=== PATIENT | male | born 1955 | race Caucasian/White ===

== ENCOUNTER → 2017-05-10 | Outpatient (CLI) | payer MEDICARE ==
[~2017-05-10] MED LIST: ADAL40KI2; CHOLESTEROL MED PO; CIP500 PO; DIC75 PO; IOPAMIDOL 76% 75 ML INFUS BTL 75 ML ONE; LOR5/325 PO; MEL7.5 PO; NS 0.9% 20 ML SDV 60 ML ONE; OMEP-218 PO; PER PO; TADA5TAB7 PO; TAM4; TENTRAL; [UNRECOGNIZED DRUG - CODE] PO
--- NOTE | 2017-05-10 20:52 | RADIOLOGY IMAGING REPORT ---
[place] [facility] NAME: Xavier Lockwood : 1955 MR: [id number] V: [id number] EXAM DATE: ORDERING PHYSICIAN: ROSEANN SHAFFER TECHNOLOGIST: Location: [facility] [place] Patient: Xavier Lockwood : 1955 Visit/Account:[id number] Date of Sevice: 05/10/2017 EXAMINATION: CT neck with IV contrast HISTORY: Neck swelling TECHNIQUE: CT was obtained through the neck following IV contrast administration. Sagittal and co jasen reformatted images were generated. 75 mL of IV Isovue-370 injected. One of the following dose optimization techniques was utilized in the performance of this exam: autom ated exposure control; adjustment of the mA and/or kV according to patient size; or use of iterative reconstruction technique. Specific details can be referenced in the facility's radiology CT exam ope rational policy. COMPARISON: None. FINDINGS: BB marker localizes site of concern in the right mid to upper neck. No neck mass seen in this region. The right submandibular gland is in this region and may explain the palpable nodule. Parotid/submandibular and thyroid glands: Atrophic or absent left submandibular gland. Normal right s ubmandibular gland, normal parotid glands. Normal thyroid. Pharyngeal and retropharyngeal soft tissues: Normal. Oral cavity and meter repairer helper space soft tissues: Normal. Laryngeal soft tissues: Normal. Lymph nodes: Negative. Vessels: Normal for age. Visualized orbits / brain: Negative. Upper chest: Normal. Bones/sinuses/mastoid air cells: No acute osseous abnormality. Multilevel degenerative cervical pamela inal narrowing. IMPRESSION: 1. No neck mass or adenopathy in the area of interest. The BB marker localizing the site of concern i s positioned near the right submandibular gland which appears normal. 2. Atrophic or absent left submandibular gland. 3. Otherwise normal neck CT. Report Dictated By: Gumaro Rose MD at 05/10/2017 8:40 PM Report E-Signed By: Gumaro Rose MD at 05/10/2017 8:47 PM WSN:[id number]
== END ==
LOC: CT 16:19
PROVIDERS: ATTEND Nurse Practitioner Family
DX: R59.0 Localized enlarged lymph nodes (principal)
CPT/HCPCS: J7050; Q9967; 70491

== ENCOUNTER 2017-06-08 01:26 | Day surgery (SDC) | payer MEDICARE ==
[~2017-06-08] VITALS: Ht 166.4 cm; Wt 85.3 kg
[~2017-06-08 01:26] MED LIST changes: +GENTAMICIN(*) 80 MG/2 ML VIAL 160 MG in NS(*) 0.9% 100 ML BAG 100 ML IVPB ONE; +IBUP200C71 PO; -IOPAMIDOL 76% 75 ML INFUS BTL 75 ML ONE; +LIDOCAINE/SOD BICARB 8.4% SYR ID ONE; +MIDAZOLAM 2 MG/2 ML VIAL IVP PRN; +NORMOSOL R SOLN(*) 1000 ML BAG 1,000 ML IV PRN; -NS 0.9% 20 ML SDV 60 ML ONE; +cefTRIAXone(*) 1 GM VIAL 1 GM in NS(*) 0.9% 100 ML ADDVANT BAG 100 ML IVPB ONE
[2017-06-08] MEDS ORDERED: PROPOFOL EMUL(*) 10MG/ML 20 ML 20 ML ONE (09:52)
[2017-06-08] MEDS ORDERED: DEXAMETHASONE SOD 4 MG/ML VIAL ONE (09:52)
[2017-06-08] MEDS ORDERED: LIDOCAINE MPF 1% 5 ML VIAL ONE (09:52)
[2017-06-08] MEDS ORDERED: METOCLOPRAMIDE 10 MG/2 ML SDV ONE (09:52)
[2017-06-08] MEDS ORDERED: ONDANSETRON 4 MG/2 ML VIAL ONE (09:52)
[2017-06-08] MEDS ORDERED: FAMOTIDINE 20 MG TAB PO ONE (11:00)
[2017-06-08 11:20] VITALS: BP 150/99
[2017-06-08] MEDS ORDERED: LIDOCAINE/SOD BICARB 8.4% SYR ID ONE (11:30)
[2017-06-08] MEDS ORDERED: GENTAMICIN(*) 80 MG/2 ML VIAL 160 MG in NS(*) 0.9% 100 ML BAG 100 ML IVPB ONE (11:30)
[2017-06-08] MEDS ORDERED: NORMOSOL R SOLN(*) 1000 ML BAG 1,000 ML IV PRN (11:30)
[2017-06-08] MEDS ORDERED: cefTRIAXone(*) 2 GM VIAL 2 GM in NS(*) 0.9% 100 ML ADDVANT BAG 100 ML IVPB ONE (11:30)
[2017-06-08] MEDS ORDERED: MIDAZOLAM 2 MG/2 ML VIAL IVP PRN (11:30)
[2017-06-08] MEDS ORDERED: fentaNYL CITR 100 MCG/2 ML AMP ONE (11:39)
[2017-06-08] MEDS ORDERED: LEVO-85 PO (14:37)
[2017-06-08] MEDS ORDERED: HYDR-389 PO (14:39)
[2017-06-08] MEDS ORDERED: IBUP800T37 PO (14:40)
[2017-06-08] MEDS ORDERED: FAMO20TA28 PO (14:43)
[2017-06-08 14:59] VITALS: BP 142/70
[2017-06-08 15:04] VITALS: BP 142/96
--- NOTE | 2017-06-08 15:33 | RADIOLOGY IMAGING REPORT ---
FACILITY: [facility] PATIENT NAME: Xavier Lockwood : 1955 MR: [id number] V: [id number] EXAM DATE: ORDERING PHYSICIAN: BRENDON SMITH TECHNOLOGIST: Location: [facility] Patient: Xavier Lockwood : 1955 Visit/Account:[id number] Date of Sevice: 06/08/2017 Exam type: PROSTATE BIOPSY History: Prostate biopsy Comparison: None. Findings: Prostate biopsy was performed by Dr. Smith. Sonographic assistance was provided. Please see Dr. Antnoio mcnally's report for complete details IMPRESSION: 1. As above Report Dictated By: Caroline Vick MD at 06/08/2017 3:28 PM Report E-Signed By: Caroline Vick MD at 06/08/2017 3:29 PM WSN:[email or web address]
--- NOTE | 2017-06-08 19:55 | OPERATIVE REPORT 1 ---
EVENT DATE: June 08, 2017 SURGEON: Mauro Vargas MD ANESTHESIOLOGIST: Damion Sellers MD ANESTHESIA: General anesthetic. PREOPERATIVE DIAGNOSES 1. Elevated prostate-specific antigen. 2. 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 POSTOPERATIVE DIAGNOSES 1. Elevated prostate-specific antigen. 2. 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 3. Calculus prostatitis. PROCEDURES PERFORMED 1. Prostate ultrasound. 2. Transrectal biopsies, #12. 3. Cystourethroscopy and evacuation of blood clots. DESCRIPTION OF PROCEDURE Under general anesthetic, the patient was prepped and draped in the extended lithotomy position. The 21 panendoscope was admitted through the urethra into the bladder. The urethra was normal. The prostate showed trilobar hyperplasia with obstruction. The bladder showed 4+ trabeculation. The trigone and ureteral orifices were normal. Approximately five to six blood clots were evacuated from the bladder. A prostate ultrasound was performed at the beginning of the procedure. Transrectal ultrasound revealed approximately a 60 g prostate. The patient had calculus prostatitis bilaterally, more on the left than on the right in the transitional zone primarily. Some mottling of the prostate tissue in the proximal mid zone area. Transrectal biopsies were obtained from the base, mid, and apical areas of the prostate bilaterally for a total of 12 prostate sample biopsies. The prostate ultrasound probe was removed. Digital rectal examination revealed minimal blood in the rectal ampulla. After cystoscopy and evacuation of the blood clots, digital rectal examination again revealed minimal blood in the rectal ampulla. The patient tolerated the procedure satisfactorily and returned to the recovery room in satisfactory condition. This is a 61-year-old Portuguese male referred by Patti Aldrich with the complaint of elevated PSA of 8.2 in 2018. The patient had a PSA of 1.9 in 2011. The patient has been on testosterone therapy for approximately 30 years. The patient's father of prostate cancer at the age of 68. The patient had nocturia times three to four, which is normal. The patient has a history of urine cystoprostatitis approximately three to four years ago. The patient has had no genitourinary tract procedures. Options were discussed with the patient pre-evaluation, and he was agreeable to further evaluation and therapy. See operative note for details. The patient had an area of firmness in the right apical area of the prostate on digital rectal examination. The patient has subsequently had the procedures. See operative note for details. The patient will be ready for discharge home when alert and functional. He is to force fluids, 2 L per day. Activities are as tolerated. He is to continue his usual medications. A copy of instructions were given to the patient. The patient will be discharged on Cipro, Pepcid, Motrin, and [place] therapy in addition to his usual medications. PLAN Follow up in the office this coming Monday, the May. LEAH
[2017-06-21] MEDS ORDERED: CALC-521 PO (13:39)
[2017-06-21] MEDS ORDERED: MAGN200T6 PO (13:39)
== END 2017-06-08 14:58 | disposition home or self-care (01) ==
LOC: OR 01:26
DX: R97.20 Elevated prostate specific antigen [PSA] (principal); N40.0 Benign prostatic hyperplasia without lower urinary tract symptoms
CPT/HCPCS: 52001; 55700; 76942; 88305; 88344; A9270; J0696; J1100; J1580; J2001; J2405; J2704; J2765; J3010; J7050

== ENCOUNTER → 2017-06-16 | Outpatient (CLI) | payer MEDICARE ==
[~2017-06-16] MED LIST changes: +FAMO20TA28 PO; -GENTAMICIN(*) 80 MG/2 ML VIAL 160 MG in NS(*) 0.9% 100 ML BAG 100 ML IVPB ONE; +HYDR-389 PO; +IBUP800T37 PO; +IOPAMIDOL 76% 75 ML INFUS BTL 75 ML ONE; +LEVO-85 PO; -LIDOCAINE/SOD BICARB 8.4% SYR ID ONE; -MIDAZOLAM 2 MG/2 ML VIAL IVP PRN; -NORMOSOL R SOLN(*) 1000 ML BAG 1,000 ML IV PRN; -cefTRIAXone(*) 1 GM VIAL 1 GM in NS(*) 0.9% 100 ML ADDVANT BAG 100 ML IVPB ONE
--- NOTE | 2017-06-16 09:29 | RADIOLOGY IMAGING REPORT ---
[place] [facility] [place] NAME: Xavier Lockwood : 1955 MR: [id number] V: [id number] EXAM DATE: ORDERING PHYSICIAN: BRENDON SMITH TECHNOLOGIST: Location: [facility] Patient: Xavier Lockwood : 1955 Visit/Account:[id number] Date of Sevice: 06/16/2017 ABDOMEN/PELVIS W/WO CONTRAST HISTORY: Prostate cancer TECHNIQUE: Axial images acquired through the abdomen/pelvis both with and without IV contrast.. Tash nal and sagittal reformatting also performed. Dose Lowering Technique One of the following dose optimization techniques was utilized in the performance of this exam: Autom ated exposure control; adjustment of the mA and/or kV according to the patient's size; or use of an i terative reconstruction technique. Specific details can be referenced in the facility's radiology C T exam operational policy. CONTRAST: 75 mL Isovue-370 COMPARISON: February 17, 2012 FINDINGS: Visualized lung bases: Negative. Hepatobiliary: Negative. Spleen: Negative. Adrenals: Negative. Pancreas: Negative. Kidneys ureters and bladder: There are small nonobstructing calculi in both renal collecting systems largest on the right measures approximately 2 mm. The largest on the left measures approximately 4 m m. No evidence of hydronephrosis or hydroureter . There are tiny subcentimeter hypodensities in beba th kidneys that are too small to characterize. There is mild thickening of the inferior bladder wall Genitalia: Prostate gland appears enlarged, heterogeneous and impinges upon the floor the bladder GI: There is diverticulosis left-sided colon although no CT evidence of acute diverticulitis Vessels/spaces/nodes: Negative. Bones/soft tissues: No aggressive appearing bone lesions are seen Additional findings: None pertinent. IMPRESSION: Prostate gland is enlarged inhomogeneous impinging upon the floor the bladder The bladder floor appears mildly thickened Nonobstructing calculi in both renal collecting systems Diverticulosis left-sided colon although no CT evidence of acute diverticulitis Report Dictated By: Caroline Vick MD at 06/16/2017 9:11 AM Report E-Signed By: Caroline Vick MD at 06/16/2017 9:25 AM WSN:[email or web address]
--- NOTE | 2017-06-16 13:54 | RADIOLOGY IMAGING REPORT ---
FACILITY: [facility] [place] PATIENT NAME: Xavier Lockwood : 1955 MR: [id number] V: [id number] EXAM DATE: ORDERING PHYSICIAN: BRENDON SMITH TECHNOLOGIST: Location: [facility] [place] Patient: Xavier Lockwood : 1955 Visit/Account:[id number] Date of Sevice: 06/16/2017 WHOLE BODY BONE SCAN HISTORY: Prostate cancer TECHNIQUE: 26.5 mCi technetium 99m HDP was injected intravenously. Delayed anterior and posterior wh ole body gamma camera images were obtained. Additional gamma camera images: Right left lateral skull COMPARISON: None. FINDINGS: Bone radiotracer activity: There is degenerative type uptake seen at the shoulders wrists and knees and feet. Extraosseous radiotracer activity: Unremarkable. Renal and urinary collecting system activity: Unremarkable. IMPRESSION: Multifocal areas of degenerative type uptake seen although no scintigraphic evidence of osseous metas tases Report Dictated By: Caroline Vick MD at 06/16/2017 1:32 PM Report E-Signed By: Caroline Vick MD at 06/16/2017 1:51 PM WSN:[email or web address]
== END ==
LOC: CT 03:34
DX: M19.90 Unspecified osteoarthritis, unspecified site (principal); N40.0 Benign prostatic hyperplasia without lower urinary tract symptoms; N32.89 Other specified disorders of bladder; N20.0 Calculus of kidney
CPT/HCPCS: 36415; 74178; 78306; 82565; A9503; Q9967

== ENCOUNTER 2017-08-22 10:14 | Outpatient (RCR) | payer MEDICARE ==
--- NOTE | 2017-06-22 17:46 | ONCOLOGY CONSULTATION ---
EVENT DATE: June 20, 2017 PRIMARY SITE AND HISTOPATHOLOGY Adenocarcinoma of the prostate, status post 12 core needle biopsy with ultrasound guidance on June 08, 2017, Sean 3+4=7. Tumor is occupying 80 % of left lateral apex biopsy, 10% of the left apex biopsy, and 20% of the left lateral middle prostate gland biopsy (three positive biopsies of 12 cores). PSA elevation of 8.2 ng/mL prior to biopsy. STAGE T1c clinical N0 M0. HISTORY This is a pleasant 61 year-old gentleman who is referred to me by Dr. Vargas to discuss oncologic options relating to a recently diagnosed prostate carcinoma. Patient has discussed surgical options recently with Dr. Vargas. He is interested in discussion of nonoperative therapeutic options. The patient has a strong family history of prostate cancer. He states his father was diagnosed with prostate cancer at age 68. He three months shortly after diagnosis. His father was living in [place] at the time. The patient states his PSA approximately five years ago was 1.9 ng/mL from his memory. Patient was recently found on lab work by DAVON Menchaca, to have a significant increase in his PSA which was elevated at 8.2 ng/mL on a collection date of May 02, 2017. He was referred back to Dr. Vargas for urologic evaluation and biopsy. Patient had a prior history of prostatitis back in 2011. He recalls having a catheter and also being on Cipro for two to four weeks. He states that he did not have any annua PSAs in the last several years due to issues with insurance. He was working previously at the [employer] on the [employer] team, but became disabled after a rotator cuff injury. After the evaluation by Dr. Vargas, he was advised that he should undergo an ultrasound-guided biopsy of the prostate and further assessment. The patient's biopsy was obtained on June 08, 2017. This was positive for three of 12 core biopsies. All three core biopsies were from the left lobe of the prostate , occupying 10% to 80% of the core needle volume. Patient has experienced some light hematuria since the biopsy, but this is slowly clearing. He denies any dysuria. Patient denies any persistent bone pain. No recent weight loss. He does have baseline urinary frequency, which he relates to significant fluid intake. He likes to drink tea. He states he voids q.2 hours during the day and six times at night. He does recall that he was on Flomax in the past, but I believe he discontinued this due to cost concerns. Patient is highly anxious regarding the possibility of prostate cancer spread or metastasis and would like to discuss therapeutic options with me today. He was quickly worked into the schedule so we could review the records which were provided by Dr. Vargas. I also reviewed his staging evaluation, which was requested by Dr. Vargas appropriately. Those studies included a bone scan on June 16, 2017 which was normal. He a CT of the abdomen and pelvis on the same date. He does have nonobstructing small calculi in both collecting systems with the calculi listed as 2 mm and 44 mm. No hydronephrosis. There is some mild thickening of the inferior bladder wall. On my review of the films there is significant prostate enlargement and indentation into the floor of the bladder, consistent with median lobe enlargement. There is slightly irregular contour to the prostate with inhomogeneous appearance. This may be related to his recent biopsy. Lateral margins of the prostate are indistinct as the gland abuts the muscles at that location. I did not see any evidence of pelvic or periaortic lymphadenopathy. Liver was unremarkable. He does have left-sided diverticulosis. PAST MEDICAL HISTORY 1. Disability due to rotator cuff injury. 2. Prior history of prostatitis. 3. Prior history of intermittent problems with ulcerative colitis, last episode four months ago. He may have one episode every year of every other year. 4. Prostate carcinoma with history as listed above. PAST SURGICAL HISTORY 1. Left rotator cuff repair. 2. Prior foot surgery for fasciitis. 3. Prior left shoulder surgery for tendon tear. REVIEW OF SYSTEMS Fourteen point review of systems notable for occasional shortness of breath with exertion, but nothing new. Moderately active. He does have joint pain and stiffness in the hips bilaterally. No cardiovascular complaints. No neurologic complaints. He does state at times he has difficulty concentrating. He tends to be anxious and thinks quickly. Does have nocturia. AUA score was 20. He has a history of GERD, but presently controlled with medications. No hematologic or lymphatic issues. MEDICATIONS 1. Ibuprofen 800 mg q.8 hours p.r.n. pain. 2. Levofloxacin 100 mg daily due to recent biopsy. 3. MVI. 4. Omeprazole. 5. Prilosec OTC 20 mg b.i.d. 6. Tums p.r.n. ALLERGIES No drug allergies. SOCIAL HISTORY Patient lives locally. He has been unable to work for the last five years, but is on disability at this time. He described the incident to me. Does have a son and a daughter. He is a sister who is a physician in [place]. He is . States he has two to three drinks per week. Nonsmoker. FAMILY HISTORY Notable for a father with prostate carcinoma at age 68. History listed in HPI. Maternal grandmother had pancreatic cancer at age 62. He believes his mother lived into her late 60s. PHYSICAL EXAMINATION GENERAL: A pleasant 61-year-old male of medium frame. VITAL SIGNS: Height 67 inches, weight 192. BP 127/89, pulse 83, respirations 16. Rates fatigue as a 6 on a scale of 1-10. LYMPH NODES: No peripheral lymphadenopathy. LUNGS: Clear to auscultation bilaterally. HEART: Sounds are regular with no audible murmur. ABDOMEN: Soft with no gross organomegaly, mass or tenderness. EXTREMITIES: Reveal no edema or cyanosis. He does have limitation on musculoskeletal extension of the shoulder to approximately 90 degrees. RECTAL: Prostate examination reveals a mildly enlarged gland. I could only palpate the inferior portion of the gland on today's exam. The prostate was nontender. NEUROLOGIC: Exam is intact. IMPRESSION This is a 61-year-old gentleman who recently was evaluated by primary care, Patti Aldrich, who appreciated a significant elevation in his PSA of 8.2, where previously the numbers were under 2 five years ago. He has a strong family history of aggressive prostate carcinoma. He appropriately underwent needle biopsies by Dr. Vargas and was found to have three positive core biopsies. Pertinent medical issues include remote history of prostatitis and BPH symptoms. He also is bothered intermittently by ulcerative colitis, but this is not active at this time. I believe the patient has an intermediate risk prostate cancer based on the features presented to me. I went through a prostate nomogram calculator from [facility] The features of his malignancy and PSA would indicate relative risk of extracapsular extension of 52%, seminal vesical involvement of 3%, and lymph node involvement of 3% in similar patients who have undergone surgery. His predicted progression-free survival from that nomogram was 86% at five years and 76% at 10 years. Patient is aware of his surgical options which have been well presented by Dr. Vargas. He and I went over radiation therapy options per his wishes, and I also discussed hormone therapy options today. He would not be a good candidate for watchful waiting in my opinion. The radiotherapy options would be an IMRT treatment program with progressive field reductions after 50 Gy to 72 Gy. Field would cover the prostate and seminal vesicals only with no extension to the lower pelvis to cover any lymph nodes, as none are visible at this time on the diagnostic CT scan which appeared to be of very good quality. The other option for the patient would be external beam radiotherapy to 50 Gy followed by Palladium-103 seed implant for boost. Both options are reasonable. I favor the external beam program in this particular patient since I think he would be at higher risk for obstructive uropathy if he underwent brachytherapy. I spoke with the patient regarding present standards of care which add ADT ( androgen deprivation therapy) to similar patients for a time period of six to 24 months. Patient is presently opposed to any thought of Lupron or Casodex at this time. He states he would like to do the radiotherapy course alone and knows that he has additional options if the tumor is not fully controlled within 12-18 months. I did tell the patient that generally the PSA would normalized within a period of about six to nine months based on the features presented to me. Treatments would be stopped immediately if he had any symptoms of colitis or recurrent prostatitis. At the end of our conversation and consultation today which took approximately 80 minutes, the patient stated that he would like to proceed with the radiotherapy program as soon as feasible. He wanted to undergo a targeting simulation of Monday of this week, and the radiotherapy program will tentatively start on July 03. I wish to thank Dr. Vargas for the excellent records which accompanied the patient today. The patient appeared to have good baseline information. He may require tamsulosin during the treatment program and I will reach out to our patient navigator to see if we can assist him in finding a lower cost pharmacy option or assistance for medications, which is a concern of the patient today. He does have Medicare A and B, but no supplement at this time, and our navigator will discuss those and/or discuss any concerns the patient may have by the time he returns for the radiotherapy program. I went through potential acute and late side effects and therapeutic management. Signed consent was obtained for treatment today and IMRT treatment approach will be taken to minimize adverse effects, and patient will be monitored closely. MTDD
[2017-06-27 13:58] VITALS: BP 118/92
[2017-06-27 14:11] LABS: PLATELET COUNT, AUTOMATED 157 K/uL (150-450)
[2017-08-21 10:47] VITALS: BP 139/85
[2017-08-21 11:00] LABS: PLATELET COUNT, AUTOMATED 142 K/uL (150-450)
[~2017-08-22 10:14] MED LIST changes: +CALC-521 PO; -IOPAMIDOL 76% 75 ML INFUS BTL 75 ML ONE; +MAGN200T6 PO; +PRED-1 PO
== END 2017-09-17 ==
LOC: RAON 10:14
PROVIDERS: ATTEND Radiology Radiation Oncology
DX: Z51.0 Encounter for antineoplastic radiation therapy (principal); C61 Malignant neoplasm of prostate; M25.552 Pain in left hip; M25.551 Pain in right hip; R35.1 Nocturia
CPT/HCPCS: 36415; 77280; 77290; 77300; 77301; 77336; 77338; 77385; 84153; 85025; G0463; 82040; 82247; 82310; 82374; 82435; 82565; 82947; 84075; 84132; 84155; 84295; 84450; 84460; 84520; 99203

== ENCOUNTER 2017-11-21 09:52 | Outpatient (RCR) | payer MEDICARE ==
[2017-08-21 10:47] VITALS: BP 139/85
[~2017-11-21 09:52] MED LIST changes: +IBUP-136 PO; -IBUP200C71 PO
== END 2017-11-29 15:45 | disposition home or self-care (01) ==
LOC: RAON 09:52
PROVIDERS: ATTEND Radiology Radiation Oncology
DX: Z51.0 Encounter for antineoplastic radiation therapy (principal); C61 Malignant neoplasm of prostate; M25.552 Pain in left hip; M25.551 Pain in right hip; R35.1 Nocturia
CPT/HCPCS: 36415; 84153; G0463; 99212

== ENCOUNTER 2018-05-22 14:52 | Outpatient (RCR) | payer MEDICARE ==
--- NOTE | 2018-01-23 13:40 | NUR ---
KRISHAN rec'd two phone calls from patient wondering if his balance at [facility] would apply to the financial assistance application agreement he had during his treatment. KRISHAN looked into this and learned that his FA had and he could not apply for financial assistance until he had a balance of more than $500. At this time the pt is agreeable to paying the bill.
[2018-02-23 10:04] VITALS: BP 135/86
[2018-02-23 10:10] LABS: PLATELET COUNT, AUTOMATED 153 K/uL (150-450)
--- NOTE | 2018-02-27 21:08 | ONCOLOGY FOLLOW UP NOTE ---
EVENT DATE: February 27, 2018 REASON FOR VISIT Oncology reassessment and review of recent PSA status post external beam radiotherapy for prostate carcinoma, [place] 7. ONCOLOGY HISTORY 1. Patient diagnosed with prostate carcinoma on ultrasound biopsy dated 06/08/2017, [place] 3 + 4 = 7 tumor. Tumor occupying 80% of the left lateral apex, 10% of the left apex, and 20% of the left lateral middle prostate gland. A total of three positive biopsies of 12 cores. Pretreatment PSA elevation 8.2 ng/mL prior to biopsy. 2. Patient treated with full-dose external beam radiation therapy, 7200 cGy, 42 fractions. Patient elected not to proceed with Lupron concurrently. INTERVAL HISTORY Patient clinically is doing well. Denies any bone pain. No dysuria. He does have a slightly slowed stream and typically voids q.90 minutes both during the day and at night. He drinks two large cups of coffee in the morning, occasionally some tea in the afternoon. He generally will drink water when he voids at night. AUA score of 22. PSA has fallen to 0.86 ng/mL with a progressive decline since the end of treatment. Prior PSA in November was 2.29. PAST MEDICAL HISTORY 1. Benign prostatic hypertrophy. 2. Prostate carcinoma diagnosed 05/2017. 3. DJD. 4. History of reflux. 5. History of ulcerative colitis. 6. Plantar fascitis. 7. Hypercholesterolemia. SURGICAL HISTORY 1. Prostate biopsies 05/2017. 2. Tendon repair of a shoulder injury in 2012. 3. Right foot surgery for plantar fasciitis 2006. MEDICATIONS 1. Ibuprofen p.r.n. 2. Multivitamin. 3. Prilosec 10 mg a day. 4. Magnesium 200 mg a day. ALLERGIES None. FAMILY HISTORY Father at age 68 with some form of malignancy. SOCIAL HISTORY He does drink an occasional beer. , two children. COMPREHENSIVE REVIEW OF SYSTEMS Completely negative with the exception of the urinary frequency q.90 minutes. Bowels are fairly regular at this time with no bleeding. LABORATORY Recent CBC and metabolic panel were normal. PSA down to 0.8 ng/mL, an excellent response. PHYSICAL EXAMINATION GENERAL: Pleasant, 62-year-old male. VITAL SIGNS: BP 135/82, pulse 65, respirations 16, O2 sat 92% on room air. Weight 193. LUNGS: Clear bilaterally. CARDIOVASCULAR: Heart sounds regular. LYMPHATICS: No lymphadenopathy. ABDOMEN: Soft. No gross organomegaly. RECTAL: The prostate bed is flat with no nodularity or tenderness. EXTREMITIES: No edema or cyanosis. IMPRESSION AND PLAN 1. Prostate carcinoma has responded well to treatment with normalization of the PSA. 2. Symptoms of benign prostatic hypertrophy. There is also smooth muscle in the bladder which sometimes causes restricted flow. I advised the patient to try tamsulosin 0.4 mg b.i.d. for 30 days, five refills, if symptoms persist. Alter fluid intake and caffeine products. Alternative therapies would include Ditropan and/or urologic assessment. 3. Patient will return to clinic in three months or be seen sooner on an as- needed basis. 4. He will continue to see Patti Aldrich for primary medical needs. LEAH
[2018-05-18 14:10] VITALS: BP 116/76
[2018-05-18 14:18] LABS: PLATELET COUNT, AUTOMATED 147 K/uL (150-450)
[~2018-05-22 14:52] MED LIST changes: +LOSA-51 PO; +TAMS0.4C70 PO
[2018-05-22] MEDS ORDERED: TAMS0.4C25 PO (15:18)
--- NOTE | 2018-05-22 22:32 | ONCOLOGY FOLLOW UP NOTE ---
EVENT DATE: May 22, 2018 REASON FOR VISIT Prostate cancer surveillance, known history of Sean 7 adenocarcinoma of the prostate. ONCOLOGY HISTORY 1. Cancer was diagnosed 06/08/17, [place] 3 + 4 = 7. Tumor occupied three of 12 core biopsies up to 80% volume, predominantly on the left side. Pretreatment PSA of 8.2 ng/mL. 2. Status post external beam radiotherapy to 7200 cGy in 42 fractions. Patient declined Lupron. INTERVAL HISTORY Patient clinically is doing well. No significant voiding issues. Baseline nocturia x3-4. Good flow. Denies any new bone pain. He does have diffuse arthritic pain and takes ibuprofen 600 mg t.i.d. Bowels are fairly stable. He does have a history of ulcerative colitis and occasionally has flare-ups with gas, abdominal cramping. He requested a prescription for prednisone today. Elected to give him the medication; however, instructed him to make sure he is given a colonoscopy this next year with the well reactivator operator. He states he did see one 6 or 7 years ago in [place]. PSA is reasonably stable, 1.2 ng/mL. Prior values were 0.86. PAST MEDICAL HISTORY 1. Prostate carcinoma. 2. BPH. 3. Ulcerative colitis. 4. History of reflux. 5. DJD. 6. Plantar fasciitis. SURGICAL HISTORY 1. Prostate biopsy 05/2017. 2. Repair of a shoulder in 2012. 3. Right foot surgery 2006. MEDICATIONS 1. Ibuprofen. 2. Prilosec. ALLERGIES None. FAMILY HISTORY Father had some type of malignancy at age 68. SOCIAL HISTORY Patient drinks occasional beer. , two children. COMPREHENSIVE REVIEW OF SYSTEMS Notable for the diffuse arthritic pain and occasional cramping in the left lower quadrant. Overall, bowels move normally 2-3 times a day. PHYSICAL EXAMINATION GENERAL: Pleasant 62-year-old male, medium build. VITAL SIGNS: BP 138/84, weight 191, pulse 69, O2 sat 92% on room air. LUNGS: Clear bilaterally. HEART: Sounds regular. ABDOMEN: Soft. No gross organomegaly. RECTAL: Deferred until next visit. IMPRESSION AND PLAN Prostate carcinoma appears to be reasonably stable at this time. I would like to recheck the number in four months and also obtain a CBC and CMP. At the patient's request, I did give him a prescription for prednisone 40 mg a day for 2 weeks which aids him at times to calm down his ulcerative colitis symptoms fairly quickly. He is agreeable to see well reactivator operator after he reaches the age of 63. LEAH
== END 2018-05-24 ==
LOC: RAON 14:52
PROVIDERS: ATTEND Radiology Radiation Oncology
DX: C61 Malignant neoplasm of prostate (principal); N40.0 Benign prostatic hyperplasia without lower urinary tract symptoms; R35.1 Nocturia; Z92.3 Personal history of irradiation; M19.90 Unspecified osteoarthritis, unspecified site
CPT/HCPCS: 36415; 84153; 85025; G0463; 82040; 82247; 82310; 82374; 82435; 82565; 82947; 84075; 84132; 84155; 84295; 84450; 84460; 84520; 99212

== ENCOUNTER 2018-09-25 13:00 | Outpatient (RCR) | payer MEDICARE ==
[2018-09-21 10:58] VITALS: BP 141/98
[2018-09-21 11:23] LABS: PLATELET COUNT, AUTOMATED 163 K/uL (150-450)
[~2018-09-25 13:00] MED LIST changes: +TAMS0.4C25 PO
[2018-09-25 13:13] VITALS: BP 141/91
--- NOTE | 2018-09-25 14:35 | ONCOLOGY FOLLOW UP NOTE ---
EVENT DATE: September 25, 2018 CHIEF COMPLAINT/REASON FOR VISIT Sean 7 adenocarcinoma of the prostate. Patient treated with external beam radiotherapy. He is here for oncology surveillance and lab review. ONCOLOGY HISTORY 1. Cancer diagnosed June 08, 2017. [place] 3 + 4 = 7. Tumor occupied 3 of 12 core biopsies up to 80% of volume, predominantly on the left side. Pre- treatment PSA of 8.2 ng/mL. 2. Patient elected to be treated with external beam radiotherapy with IMRT of 7,200 cGy in 42 fractions. He declined Lupron. INTERVAL HISTORY Patient clinically is doing well. Although he gets up at night every two hours, this is generally due to fluid intake. He drinks more fluids in the evenings and he also drinks fluids at night. Denies any dysuria. He has excellent control during the day. He does have some minor fatigue. He does suffer from chronic arthritic pain in joints and hands. Patient has a longstanding history of ulcerative colitis from his report. He did follow up with DAVON Menchaca, yesterday and has referral to Dr. Botello in [place]. Dr. Botello did his original scopes six to seven years ago. The patient was informed there are multiple new medications over the last 5 plus years that he may benefit from. He is concerned about long-term immunosuppression as opposed to taking prednisone for any flare ups of colitis. He will discuss this further with Dr. Botello at next appointment or after the scope. PSA has fallen from 1.2 ng/mL to 0.98 ng/mL; the latter was drawn on September 21, 2018. PAST MEDICAL HISTORY 1. Prostate carcinoma. 2. BPH. 3. Ulcerative colitis. 4. History of reflux. 5. DJD. 6. Plantar fasciitis. PAST SURGICAL HISTORY 1. Prostate biopsy, 2018. 2. Repair of shoulder, 2012. 3. Right foot surgery, 2006. MEDICATIONS 1. Prilosec. 2. Ibuprofen p.r.n. (partially intolerant). 3. Tamsulosin 0.4 mg b.i.d. 4. MVI. ALLERGIES None. SOCIAL HISTORY Patient is retired, disability. His son and daughter both live in [place]. He originally has a medical background in [place] and has a sister who is a physician in [place]. He is . He states he drinks beer p.r.n. in the evening. Nonsmoker. FAMILY HISTORY Notable for father with prostate carcinoma, age 68. Maternal grandmother with pancreatic carcinoma at 62. REVIEW OF SYSTEMS Notable for intermittent fatigue, occasional difficulty with remembering. He states he is prone to recurrent infections, urinary frequent. AUA score was 14. Muscle pain, stiffness, occasional dyspepsia. PHYSICAL EXAMINATION GENERAL: Pleasant 63-year old male, medium frame. VITAL SIGNS: 90 kilograms, pulse 68, respirations 16, temperature 97.3, O2 sat 93% on room air. BP 141/91. NECK: No lymphadenopathy. LUNGS: Clear bilaterally. CARDIOVASCULAR: Heart sounds regular. No audible murmur. ABDOMEN: Soft. No gross organomegaly. RECTAL: Deferred as PSA is normal. No palpable nodularity at presentation. EXTREMITIES: No edema or cyanosis. NEUROLOGIC: Intact. IMPRESSION/PLAN 1. No evidence of prostate carcinoma or recurrence. PSA under excellent control at 0.98 ng/mL. My target value was to keep the PSA under the 2 to 2.5 range. 2. Inflammatory colon disease. Patient will follow up with Dr. Botello within the next 90 days and have a followup colonoscopy. 3. Continue regular medical care with DAVON Menchaca. 4. Return to clinic in six months with updated PSA. 5. I also had a metabolic panel at this appointment, which was normal including hemoglobin of 18.2, hematocrit 51, white count 4.9, platelets 163, BUN 18, creatinine 0.9. Minor increase in the AST and ALT at 73 and 82, respectively, which he may discuss with the GI service. ADDENDUM (He does have a history of IMRT radiotherapy to the prostate, prefer no biopsies of the low rectum unless there is an obvious mass. The treatment field would have covered the prostate with a 5 mm margin extending over 3 cm from the dentate line.) May or may not see telectasias from prior xrt. Followup appointment was completed over a time-frame of 40 minutes of which 35 minutes were spent directly face to face with the patient for complex clinical examination and therapeutic management and counseling. LEAH
--- NOTE | 2018-10-15 12:32 | NUR ---
SW followed up with pt about his needs for assistance affording his bills. No further needs at this time. [place] housing authority is not an option, as the pt is paying a mortgage and not rent.
== END 2018-10-15 13:50 | disposition home or self-care (01) ==
LOC: RAON 13:00
PROVIDERS: ATTEND Radiology Radiation Oncology
DX: Z85.46 Personal history of malignant neoplasm of prostate (principal); Z92.3 Personal history of irradiation; K63.89 Other specified diseases of intestine
CPT/HCPCS: 36415; 82040; 82247; 82310; 82374; 82435; 82565; 82947; 84075; 84132; 84153; 84155; 84295; 84450; 84460; 84520; 85025

== ENCOUNTER → 2018-09-27 | Outpatient (CLI) | payer MEDICARE ==
--- NOTE | 2018-09-27 09:41 | RADIOLOGY IMAGING REPORT ---
FACILITY: [facility] [place] PATIENT NAME: Xavier Lockwood : 1955 MR: [id number] V: [id number] EXAM DATE: ORDERING PHYSICIAN: ROSEANN SHAFFER TECHNOLOGIST: Location: [facility] Patient: Xavier Lockwood : 1955 Visit/Account:[id number] Date of Sevice: 09/27/2018 GALLBLADDER HISTORY: Stomach pain radiates to draw, colicky abdominal pain in the right upper quadrant COMPARISON: April 26, 2009 FINDINGS: Gallbladder: Unremarkable; no stones or sludge. Liver: Negative. Common duct: Normal, 2.4 mm diameter. Pancreas: Partially obscured by bowel, visualized aspects unremarkable. Right kidney: Right kidney appears unremarkable measuring 11.4 cm in length Upper abdominal aorta and IVC: Patent. Ascites: None visualized. IMPRESSION: Unremarkable right upper quadrant ultrasound Report Dictated By: Caroline Vick MD at 09/27/2018 9:34 AM Report E-Signed By: Caroline Vick MD at 09/27/2018 9:38 AM WSN:[email or web address]
== END ==
LOC: US 00:33
PROVIDERS: ATTEND Nurse Practitioner Family
DX: R10.84 Generalized abdominal pain (principal)
CPT/HCPCS: 76705

== ENCOUNTER → 2018-10-11 | Outpatient (CLI) | payer MEDICARE ==
[~2018-10-11] MED LIST changes: +REGADENOSON 0.4 MG/5 ML SYR ONE
--- NOTE | 2018-10-11 16:01 | RADIOLOGY IMAGING REPORT ---
FAC[place]: [facility] [place]IENT NAME: Xavier Lockwood : 1955 MR: [id number] V: [id number] EXAM DATE: ORDERING PHYSICIAN: ROSEANN SHAFFER TECHNOLOGIST: Location: [facility] Patient: Xavier Lockwood : 1955 Visit/Account:[id number] Date of Sevice: 10/11/2018 KIDNEYS EXAMINATION: Renal ultrasound. History: Right left flank pain, history of kidney stones COMPARISON STUDIES: CT abdomen and pelvis June 16, 2017 FINDINGS: Kidneys: Right kidney- 10.8 x 4.8 x 6.1 cm Left kidney- 11.5 x 6.2 x 4.3 cm Uniform and symmetric blood flow in each kidney by Doppler ultrasound. Hydronephrosis: none Resistive index on the right 0.66 on the left 0.65 Bladder: Prevoid volume 127 mL. Post void residual 26 mL. Bilateral ureteral jets are present. Abdominal aorta and IVC: Aorta and IVC are patent by Doppler ultrasound. IMPRESSION: Post void bladder residual 26 mL Sonographic appearance to the kidneys is unremarkable Report Dictated By: Caroline Vick MD at 10/11/2018 3:50 PM Report E-Signed By: Caroline Vick MD at 10/11/2018 3:55 PM WSN:[id number]
--- NOTE | 2018-10-12 11:34 | RADIOLOGY IMAGING REPORT ---
FACILITY: [facility] [place] PATIENT NAME: Xavier Lockwood : 1955 MR: [id number] V: [id number] EXAM DATE: ORDERING PHYSICIAN: ROSEANN SHAFFER TECHNOLOGIST: Location: [facility] Patient: Xavier Lockwood : 1955 Visit/Account:[id number] Date of Sevice: 10/11/2018 EXAMINATION: Single isotope SPECT imaging with regadenoson infusion and gated SPECT imaging. DATE OF EXAMINATION: 10/11/2018. DATE OF INTERPRETATION: 10/12/2018. REQUESTING PHYSICIAN: ROSEANN SHAFFER. INDICATION: The patient is a 63-year-old male evaluated for hypertension. PROCEDURE: After informed consent the patient received an intravenous injection of 11.4 mCi of Tc-99 m sestamibi followed at an appropriate time interval by rest imaging. The patient then subsequently received an intravenous infusion of 0.4 mg of regadenoson per protocol without complication. Resting heart rate was 57 bpm with a peak heart rate of 83 bpm. Blood pressure at rest was 112 / 82 and fol lowing infusion was 137 / 86. Baseline EKG demonstrates sinus rhythm. There were no EKG changes of ischemia following infusion. Symptoms were nonspecific. The patient then received an intravenous in jection of 29.7 mCi of Tc-99m sestamibi followed by stress imaging. RAW DATA: Examination of the summed raw data revealed a good quality study. MYOCARDIAL PERFUSION: The tomographic images demonstrate normal myocardial perfusion with no evidenc e of infarct or ischemia. There is no TID. GATED IMAGES: The gated images demonstrate normal ejection fraction 68% with normal wall motion and thickening. IMPRESSION: 1. Nondiagnostic Lexiscan stress ECG 2. Normal myocardial perfusion scan. 3. Normal LV systolic function; LVEF 68%. 4. Based on the results of this exam, the patient appears to be at low risk for future cardiovascular events. Report Dictated By: Izaiah Block at 10/12/2018 11:22 AM Report E-Signed By: Izaiah Block at 10/12/2018 11:26 AM WSN:[id number]
== END ==
LOC: NUC 00:16
PROVIDERS: ATTEND Nurse Practitioner Family
DX: N20.0 Calculus of kidney (principal); C61 Malignant neoplasm of prostate; R10.84 Generalized abdominal pain; I10 Essential (primary) hypertension; E87.1 Hypo-osmolality and hyponatremia; R11.2 Nausea with vomiting, unspecified; R10.9 Unspecified abdominal pain; R61 Generalized hyperhidrosis
CPT/HCPCS: 76705; 78452; 93017; A9500; J2785